=== PATIENT | male | born 1930 | race Caucasian/White ===

== ENCOUNTER 2020-06-06 01:37 | Observation (INO) | payer MEDICARE, OTHER ==
[~2020-06-06] VITALS: Ht 175.3 cm; Wt 69.0 kg
[2020-06-06] MEDS ORDERED: LABETALOL 20 MG/4 ML DISP.SYRIN. IVP ONE ×2 (01:45→05:00)
--- NOTE | 2020-06-06 01:56 | PHYS DOC ---
General Adult EDM: Chief Complaint: HYPERTENSION HPI: HPI: Patient is a 89 year old male presents for evaluation of elevated blood pressure. Blood pressure taken prior to bed was > 200 systolic. Patient called 911 for evaluation. Patient states today his blood pressure and "lung" medications where changed. Patient denies any chest pain or headache or shortness of breath. Patient is a/o x 4-- no neuro deficits. Review of Systems: Review of Systems: Review of systems: Constitutional symptoms- No fever, no chills. Eyes- No Discharge, No Visual Loss Respiratory symptoms- No shortness of breath, No wheezing, No Dyspnea on Exertion Cardiovascular Systems; No chest pain, No Palpitations, No syncope Gastrointestinal symptoms: NO abdominal pain, no nausea, no vomiting or diarrh ea. Genitourinary symptoms: No dysuria. Musculoskeletal symptoms: No back pain No extremity pain. NEUROLOGICAL Symptoms: No headache, no generalized weakness; No focal Weakness Heart Score: C/O Chest Pain: N/A Risk Factors: Risk Factors: DM, Current or recent (<one month) smoker, HTN, HLP, family history of CAD, obesity. Risk Scores: Score 0 - 3: 2.5% MACE over next 6 weeks - Discharge Home Score 4 - 6: 20.3% MACE over next 6 weeks - Admit for Clinical Observation Score 7 - 10: 72.7% MACE over next 6 weeks - Early Invasive Strategies Current Medications: Current Medications Medications (Trade) Dose Ordered Sig/Claudy Start Time Stop Time Status Last Admin Dose Admin Labetalol HCl (Normodyne Iv Push) 20 mg 1X ONCE 06/06/20 01:45 06/06/20 01:46 UNV Physical Exam: PE: General: alert, no acute distress. Skin: warm, dry and intact. Head:: Normocephalic, atraumatic. Neck: Trachea midline. Eyes: EOMI, Normal conjunctiva, No drainage CARDIOVASCULAR: Regular rate and rhythm RESPIRATORY: No respiratory distress Back: Full range of motion. MUSCULOSKELETAL: Full range of motion of bilateral upper and lower extremities. GASTROINTESTINAL: Abdomen soft without rebound or guarding. NEUROLOGICAL: Alert and noted to person, place and time. No neurological deficits observed Psychiatric: Cooperative. Normal judgment EKG: EKG: [] EKG performed at 145 hours heart rate [address] elevation no ST depression no acute MS Radiology/Procedures: Radiology/Procedures: [] Impression: Impression: 1. No radiographic evidence for overt congestive heart failure/volume overload. 2. Multifocal calcific pleural plaque bilaterally. Background findings which could indicate underlying emphysema. Correlate for a smoking history. 3. Relatively extensive calcific atherosclerosis seen to involve the aorta and great vessels extending to the axilla. Electronically signed by: PRIYANKA MUSA MD (06/06/2020 3:30 AM) [facility] Course & Med Decision Making: Course & Med Decision Making Pertinent Labs and Imaging studies reviewed. (See chart for details) [] Was evaluated for chief complaint. Work-up consisted of laboratory analysis and radiologic imaging. Results reviewed and discussed with patient. Patient's initial blood pressure greater than 200/100 systolic. Initial treatment included labetalol 20 mg IV push with improvement to the 160s 170s s ystolic. Patient's initial troponin resulted elevated at 0.198 Patient creatine noted to elevated 1.5. No old creatine and troponin available for comparision. Patient required repeat dose of labatolol 40mg for repeat elevated bp. Due elevated trop, elevated creatine-- and high blood pressure patient was admitted for further evaluation. Merle Disclaimer: Merle Disclaimer: This electronic medical record was generated, in whole or in part, using a voice recognition dictation system. Departure Departure Impression: Primary Impression: Hypertension Additional Impressions: Elevated troponin Renal insufficiency Disposition: ADMITTED INPATIENT Admitting Physician: BOOGIE Condition: STABLE TANYA HYLTON DO Jun 06, 2020 01:56
[2020-06-06 02:14] LABS: CALCIUM 9.1 mg/dL (8.5-10.1); CREATININE 1.6 mg/dL (0.7-1.3)
--- NOTE | 2020-06-06 02:16 | EKG ---
[facility] [address] [place] [address] Test Date: 2020-06-06 Test Time: 01:45:34 Pat Name: GLORIA YORK Department: Room: Gender: M Commissary Steward: : 1930 Requested By: TANYA HYLTON Order Number: [id number] Reading MD: Measurements Intervals [place] Rate: 85 P: -53 AR: 132 QRS: -6 QRSD: 102 T: 111 QT: 366 QTc: 436 Interpretive Statements SINUS RHYTHM LEFTWARD AXIS T ABNORMALITY IN LATERAL LEADS ABNORMAL ECG RI6.02 No previous ECG available for comparison
[2020-06-06 02:22] LABS: TOTAL PROTEIN 6.6 g/dL (6.4-8.2)
[2020-06-06 02:23] LABS: ALBUMIN 3.4 g/dL (3.4-5.0); ALBUMIN/GLOBULIN RATIO 1.1 (1.0-1.7); TOTAL BILIRUBIN 0.5 mg/dL (0.2-1.0)
[2020-06-06] MEDS ORDERED: UNABLE MC (03:23)
--- NOTE | 2020-06-06 03:32 | RAD ---
Study: XR CHEST 1V Indication: Elevated troponin. Comparison: None. Findings: Status post median sternotomy for coronary artery bypass grafting. The cardiomediastinal silhouette i s within normal limits for size. No overt central vascular congestion. Multifocal calcific pleural plaque. No large effusion. No pneumothorax. Increased interstitial markin gs. Particularly the left hemidiaphragm is flattened. Vascular calcifications. Impression: 1. No radiographic evidence for overt congestive heart failure/volume overload. 2. Multifocal calcific pleural plaque bilaterally. Background findings which could indicate underlyin g emphysema. Correlate for a smoking history. 3. Relatively extensive calcific atherosclerosis seen to involve the aorta and great vessels extendin g to the axilla. Electronically signed by: PRIYANKA MUSA MD (06/06/2020 3:30 AM) [facility]
[2020-06-06 03:57] LABS: PROTHROMBIN TIME PATIENT 13.8 SEC (11.7-14.0)
--- NOTE | 2020-06-06 06:15 | NUR ---
Pt arrived to unit to room 109 by ED at 0630. Pt is alert and oriented on room air. Pt woke up at 1AM with chest pain, checked BP and stated it was "really high." Drove himself to the ER, labs were draw- troponin was 0.198. Admitted to ICU but CVC status. On monitor, call light in reach and bed at the lowest position. Will continue to monitor.
[2020-06-06 07:00] VITALS: BP 185/88
[2020-06-06] MEDS ORDERED: METO50TA4 PO (08:31)
[2020-06-06] MEDS ORDERED: AMLO-187 PO (08:31)
[2020-06-06] MEDS ORDERED: BUDE10.2 IH (08:31)
[2020-06-06] MEDS ORDERED: ATOR20TA58 PO (08:31)
[2020-06-06] MEDS ORDERED: ALBU2.5V8 IH (08:31)
[2020-06-06] MEDS ORDERED: LABETALOL 20 MG/4 ML DISP.SYRIN. IVP PRN (09:45)
[2020-06-06] MEDS ORDERED: METOPROLOL SUCC 24HR ER 50 MG TAB.ER.24H. PO SCH (10:00)
[2020-06-06] MEDS ORDERED: amLODIPine BESYLATE 10 MG TABLET PO SCH (10:00)
[2020-06-06 11:00] VITALS: BP 165/92
[2020-06-06] MEDS: ALBUTEROL SULFATE 2.5 MG/3 ML NEBU. NEB SCH ×2 (12:06→15:10)
--- NOTE | 2020-06-06 12:09 | PDOC2 ---
FELECIA TOVAR [employer] COMMER[employer] CONSULTANT 06/06/20 1209: CARDIAC CONSULT DATE OF CONSULT Date of Consult DATE: 06/06/20 TIME: 12:02 REASON FOR CONSULT Reason for Consult: Elevated troponin REFERRING PHYSICIAN Referring Physician: Paulina SOURCE Source: Caregiver (daughter), Chart review, Patient HISTORY OF PRESENT ILLNESS HISTORY OF PRESENT ILLNESS This is a pleasant 89 yo male admitted for complains of high BP. Reports that he recently saw his provider and reported that he was told to stop his BP meds since his BP is very well controlled. He was actually evaluated via his development analyst Dr. Ford in mar to which his metoprolol was cut to 50 mg bid from 100 mg and stopped his norvasc at that time. This was verified by his daughter. He takes norvasc and metoprolol. He went to his lung doctor few days ago and his SBP was in the 140s and actually checked it himself yesterday and was good. He tried to go to bed last night and having a hard time sleeping and his ears were bothering him having seems fullness sounds possibly tinnitus accdg to daughter and was told by placer miner that his hearing aid may need to be adjusted. It was 2 AM and he checked his BP and it was in the 220/110s so he called for help. Denies any chest pain. He does have some SOA but unchanged from his baseline and no changes with his daily activity tolerance with continuous O2 at 2.5 LPM with underlying COPD and was just recently started on trelegy. No palpitations, nausea or vomiting. No unilateral weakness, facial droop or visual disturbances. Again he repeatedly denies any chest pain. He has had CABG and valvular surgeries in the past. Denies any prior covid-19 exposure and had completed his vaccination in 03/2020. PAST MEDICAL HISTORY Cardiovascular: CAD, CHF, HTN, Hyperlipidemia, Aortic stenosis, Valve insufficiency, Other (AAA) Pulmonary: COPD CENTRAL NERVOUS SYSTEM: Other (No pertinent history) GI: Constipation Heme/Onc: No pertinent hx Hepatobiliary: No pertinent hx Psych: No pertinent hx Musculoskeletal: Osteoarthritis Rheumatologic: No pertinent hx Infectious disease: No pertinent hx ENT: No pertinent hx Renal/: Chronic renal insuff (CKD3), Benign prostatic enlarg. Endocrine: No pertinent hx Dermatology: No pertinent hx PAST SURGICAL HISTORY Past Surgical History: CABG (x4 with bioprosthetic AVR 2009), Other ( MC placement 01/25/2017, carotid bilateral endarterectomy 2004, AAA repair 2004; abdominal surgery) FAMILY HISTORY Family History: Hypertension SOCIAL HISTORY Smoke: Quit (heavy smoker before) ALCOHOL: occassional Drugs: None Lives: with Family CURRENT MEDICATIONS CURRENT MEDICATIONS Current Medications Medications (Trade) Dose Ordered Sig/Claudy Route PRN Reason Start Time Stop Time Status Last Admin Dose Admin Labetalol HCl (Normodyne Iv Push) 20 mg 1X ONCE IVP 06/06/20 01:45 06/06/20 02:28 DC 06/06/20 02:38 Labetalol HCl (Normodyne Iv Push) 40 mg 1X ONCE IVP 06/06/20 05:00 06/06/20 05:01 DC 06/06/20 05:18 Amlodipine Besylate (Norvasc) 10 mg DAILY PO 06/06/20 10:00 06/06/20 09:41 Metoprolol Succinate (Toprol Xl) 50 mg BID PO 06/06/20 10:00 06/06/20 09:41 ALLERGIES ALLERGIES: Coded Allergies: No Known Drug Allergies (Unverified , 06/06/20) ROS Review of System 14 point ROS evaluated with pertinent positives noted per HPI PHYSICAL EXAM General: Alert, Oriented X3, Cooperative, No acute distress HEENT: Atraumatic, Mucous membr. moist/pink Lungs: Other (fine basilar crackles) Heart: Regular rate (SR), Normal S1, Normal S2, Other (3-4/6 systolic murmur to apical and 3/6 systolic murmut to SHARONDA border) Abdomen: Soft Extremities: No cyanosis, No edema Skin: No breakdown, No significant lesion Neuro: Normal speech, Sensation intact Psych/Mental Status: Mental status NL, Mood NL MUSCULOSKELETAL: Osteoarthritic changes both hands VITALS/I&O VITALS/I&O: Vital Signs Date Time Temp Pulse Resp B/P (MAP) Pulse Ox O2 Delivery O2 Flow Rate FiO2 06/06/20 11:00 97.8 75 26 165/92 (116) 99 Nasal Cannula 3.0 97.8 LABS Lab: Laboratory Tests Test 06/06/20 02:00 06/06/20 04:00 06/06/20 07:35 Prothrombin Time 13.8 SEC (11.7-14.0) Prothrombin Time INR 1.1 (0.8-1.1) Activated Partial Thromboplast Time 29 SEC (24-38) Sodium Level 145 mmol/L (136-145) Potassium Level 4.0 mmol/L (3.5-5.1) Chloride Level 110 mmol/L (98-107) H Carbon Dioxide Level 25 mmol/L (21-32) Anion Gap 10 (6-14) Blood Urea Nitrogen 36 mg/dL (8-26) H Creatinine 1.6 mg/dL (0.7-1.3) H Estimated GFR (Cockcroft-Gault) 41.0 BUN/Creatinine Ratio 23 (6-20) H Glucose Level 113 mg/dL (70-99) H Calcium Level 9.1 mg/dL (8.5-10.1) Total Bilirubin 0.5 mg/dL (0.2-1.0) Aspartate Amino Transferase (AST) 20 U/L (15-37) Alanine Aminotransferase (ALT) 22 U/L (16-63) Alkaline Phosphatase 45 U/L (46-116) L Troponin I Quantitative 0.198 ng/mL (0.000-0.055) 0.185 ng/mL (0.000-0.055) 0.211 ng/mL (0.000-0.055) Total Protein 6.6 g/dL (6.4-8.2) Albumin 3.4 g/dL (3.4-5.0) Albumin/Globulin Ratio 1.1 (1.0-1.7) Laboratory Tests 06/06/20 02:00 ECHOCARDIOGRAM ECHOCARDIOGRAM 12/2019 [facility] Normal left ventricular systolic function. EF~ 60% Right ventricular size and systolic function are normal S/p Mitraclip with mildly elevated mean gradient of 4 mm Hg. Mild to moderate mitral regurgitation. Well seated 23 mm Mosaic Ultra porcine bioprosthetic aortic valve with mildly elevated mean gradient of 21 mm Hg. No regurgitation No significant pericardial effusion ASSESSMENT/PLAN ASSESSMENT/PLAN 1. HTN urgency: due to missed meds at least in the last week 2. NSTEMI: suspect type 2 due to above.Peaked 0.2 No CP and no acute changes to EKG 3. CAD: CABG x4 with bioprosthetic AVR in 2009 4. MR: MC placement in 2016 5. HX of AAA and bilateral CEA in 2004 monitored closely by [facility] 6. COPD: stable, O2 dependent 7. HLP: lipids on goal 8. CKD3: baseline Cr at 1.4-1.7 Recommendations 1. TTE 2. Restart metoprolol and norvasc. Discussed with daughter and pt. HBPM bid for 2 weeks with diary 3. Continue ASA and statin 4. Secondary prevention measures 5. Trop elevation is likely from uncontrolled HTN. Given that he is not having a ny chest pain at all and no acute EKG changes he could potentially go home this evening if BP is better controlled. He will need a lexiscan next week and I notified Dr. Ford's office and spoke with the traffic officer and a lexiscan will be scheduled for next week. . MARISELA HICKMAN MD 06/07/20 0926: CARDIAC CONSULT ASSESSMENT/PLAN ASSESSMENT/PLAN Late entry for 06/06/20. The patient was seen and interviewed as well as examined at the bedside. The chart was reviewed. The case was discussed. Agree with the plan of care. FELECIA TOVAR APRN Jun 06, 2020 12:09 MARISELA HICKMAN MD Jun 07, 2020 09:26
[2020-06-06 12:19] LABS: BASO # 0.1 x10^3/uL (0.0-0.2); BASO % 1 % (0-3); EOS % 0 % (0-3); HEMATOCRIT 40.9 % (39.0-53.0); HEMOGLOBIN 13.2 g/dL (13.0-17.5); LYMPH # 1.6 x10^3/uL (1.0-4.8); LYMPH % 15 % (24-48); MEAN CORPUSCULAR HEMOGLOBIN 26 pg (25-35); MEAN CORPUSCULAR HGB CONC 32 g/dL (31-37); MEAN CORPUSCULAR VOLUME 80 fL (79-100); MONO % 10 % (0-9); NEUT % 75 % (31-73); PLATELET COUNT 230 x10^3/uL (140-400); RED BLOOD COUNT 5.11 x10^6/uL (4.30-5.70); RED CELL DISTRIBUTION WIDTH 15.2 % (11.5-14.5); WHITE BLOOD COUNT 10.7 x10^3/uL (4.0-11.0)
[2020-06-06 12:26] LABS: CHOLESTEROL/HDL RATIO 2.2
[2020-06-06] MEDS ORDERED: ASPIRIN ENTERIC COATED 81 MG TABLET.DR. PO SCH (13:00)
--- NOTE | 2020-06-06 13:24 | EKG ---
[facility] [address] [place] [address] Test Date: 2020-06-06 Test Time: 13:21:52 Pat Name: GLORIA YORK Department: Room: 109 1 Gender: M Commissary Representative: WARREN : 1930 Requested By: FELECIA TOVAR Order Number: [id number] Reading MD: Measurements Intervals [place] Rate: 80 P: 4 AK: 180 QRS: -11 QRSD: 96 T: 121 QT: 366 QTc: 426 Interpretive Statements SINUS RHYTHM LEFTWARD AXIS ST & T ABNORMALITY, CONSIDER ANTEROLATERAL ISCHEMIA OR LEFT VENTRICULAR STRAIN ABNORMAL ECG RI6.02 Compared to ECG 06/06/2020 01:45:34 Possible ischemia now present T-wave abnormality still present
--- NOTE | 2020-06-06 14:34 | NUR ---
SS following for discharge planning. SS reviewed pt chart and discussed with pt RN. Pt is from home with spouse and is currently requiring oxygen at 2.5 liters nasal canula. Pt has home oxygen. Cardiology consulted. ECHO ordered. Probable discharge to home later today. SS will continue to follow for discharge planning.
[2020-06-06 15:00] VITALS: BP 115/69
[2020-06-06] MEDS ORDERED: ASPI-630 PO (17:01)
[2020-06-06] MEDS ORDERED: AMLO-186 PO (17:01)
--- NOTE | 2020-06-06 17:02 | CARD ---
MR#: [id number] Date of Study: 06/06/2020 Ordering Physician: FELECIA TOVAR, Referring Physician: FELECIA TOVAR Tech: Masha Lauren [facility] APPROVED REPORT EXAM: Two-dimensional and M-mode echocardiogram with Doppler and color Doppler. Other Information Quality : Fair Technically limited study due to body habitus. INDICATION Hypertension/HCVD HX: CABG, Mitral Clip, Porcine Aortic Valve Replacement 2D DIMENSIONS Left Atrium(2D)4.0 (1.6-4.0cm)IVSd1.0 (0.7-1.1cm) Aortic Root(2D)3.0 (2.0-3.7cm)LVDd3.4 (3.9-5.9cm) LVOT Diameter1.9 (1.8-2.4cm)PWd0.8 (0.7-1.1cm) LVDs2.3 (2.5-4.0cm)FS (%) 32.8 % SV29.4 mlLVEF(%)62.4 (>50%) Aortic Valve AoV Peak Golden.252.3cm/sAoV VTI47.9cm AO Peak GR.25.5mmHgLVOT VTI 28.08cm AO Mean GR.14mmHgAVA (VTI)1.70cm2 Mitral Valve MV E Oteuuuct830.7cm/sMV E Peak Gr.8mmHg MV DECEL [id number] A Frjdgbil910.4cm/s MV E Mean Gr.4mmHgE/A Ratio1.1 TDI Lateral E' P. V7.92cm/sMedial E' P. V3.99cm/s E/Lateral E'17.0E/Medial E'33.8 Tricuspid Valve TR P. Debnpibu340gx/sRAP [id number] TR Peak Gr.54emTwAIIE42dzOv LEFT VENTRICLE The left ventricle cavity is small. There is normal left ventricular wall thickness. The left ventric ular systolic function is normal and the ejection fraction is within normal range. The Ejection Fract ion is 55-60%. There is grossly normal LV segmental wall motion. Transmitral Doppler flow pattern is Grade I-abnormal relaxation pattern. RIGHT VENTRICLE The right ventricle cavity is small. The right ventricular systolic function is normal. ATRIA The left atrium is mildly dilated. The right atrium size is normal. The interatrial septum is intact with no evidence for an atrial septal defect or patent foramen ovale as noted on 2-D or Doppler imagi ng. AORTIC VALVE Doppler and Color Flow revealed no significant aortic regurgitation. Calculated aortic valve area is 1.7 cm2 with maximum pressure gradient of 25 mmHg and mean pressure gradient of 14 mmHg. There is a p orcine aortic valve prosthesis. Bioprosthesis leaflets are not well visualized. MITRAL VALVE Calculated mitral valve area is 2.3 cm2 with maximum pressure gradient of 8 mmHg and mean pressure gr adient of 4 mmHg. Doppler and Color-flow revealed mild mitral regurgitation. A mitral clip is noted a nd appears to be functioning normally. TRICUSPID VALVE The tricuspid valve is normal in structure and function. Doppler and Color Flow revealed physiologica l tricuspid regurgitation. The PA pressure was estimated at 27 mmHg. There is no tricuspid valve sten osis. PULMONIC VALVE The pulmonic valve is not well visualized. GREAT VESSELS The aortic root is normal in size. The ascending aorta is not well seen. The IVC is normal in size an d collapses >50% with inspiration. PERICARDIAL EFFUSION There is no evidence of significant pericardial effusion. Critical Notification Critical Value: No <Conclusion> The left ventricular systolic function is normal and the ejection fraction is within normal range. Th e Ejection Fraction is 55-60%. There is grossly normal LV segmental wall motion. Probable bioprosthetic aortic valve. Bioprosthesis leaflets are not well visualized. Calculated aortic valve area is 1.7 cm2 with maximum pressure gradient of 25 mmHg and mean pressure g radient of 14 mmHg. A mitral clip is noted and appears to be functioning normally. Calculated mitral valve area is 2.3 cm2 with maximum pressure gradient of 8 mmHg and mean pressure gr adient of 4 mmHg. Doppler and Color-flow revealed mild mitral regurgitation. Signed by : Jesus Recio, Electronically Approved : 06/06/2020 17:02:08
--- NOTE | 2020-06-06 18:31 | NUR ---
Patient discharged via wheelchair by this RN accompanied by home health worker. All lines removed. Discharge paperwork gone over with and given to both patient and home health care worker with written and verbal instructions. Patient stable at discharge.
--- NOTE | 2020-06-06 18:53 | HP ---
ADMIT DATE: 06/06/2020 CHIEF COMPLAINT: Elevated blood pressure. HISTORY OF PRESENT ILLNESS: The patient is a pleasant 89-year-old female who presented to the ER last night with blood pressures in the 200s systolically. He stated he had associated weakness. This has been occurring off and on for a couple of days. He increased his home meds but that was not working, worse with moving, better with sitting still. He has now been admitted to the ICU where he has been examined in room 109. PAST MEDICAL HISTORY: Hypertension, probable noncompliance, asthma, hyperlipidemia. ALLERGIES: None. FAMILY HISTORY: Hypertension. SOCIAL HISTORY: He does not drink, smoke or take drugs. MEDICATIONS: Reviewed. Please refer to the MRAD. REVIEW OF SYSTEMS: GENERAL: He complains of weakness. SKIN: No bruising, hair changes or rashes. EYES: No blurred, double or loss of vision. NOSE AND THROAT: No history of nosebleeds, hoarseness or sore throat. HEART: No history of palpitations, chest pain or shortness of breath on exertion. LUNGS: Denies cough, hemoptysis, wheezing or shortness of breath. GASTROINTESTINAL: Denies changes in appetite, nausea, vomiting, diarrhea or constipation. GENITOURINARY: No history of frequency, urgency, hesitancy or nocturia. NEUROLOGIC: Denies history of numbness, tingling, tremor or weakness. PSYCHIATRIC: No history of panic, anxiety or depression. ENDOCRINE: No history of heat or cold intolerance, polyuria or polydipsia. EXTREMITIES: Denies muscle weakness, joint pain, pain on walking or stiffness. PHYSICAL EXAMINATION: VITALS: His blood pressure is 227/104. GENERAL: No apparent distress. Alert and oriented. HEENT: Normal cephalic atraumatic, external auditory canals are patent. EYES: Extraocular muscles are intact, pupils are equally round and reactive to light and accommodation. MUSCULOSKELETAL: Well developed, well nourished, good range of motion. ENDOCRINE: No thyromegaly was palpated. LYMPHATICS: No cervical chain or axillary nodes were noted. HEMATOPOIETIC: No bruising. NECK: Supple, no JVD, no thyromegaly was noted. LUNGS: Clear to auscultation in all lung teixeira without rhonchi or wheezing. HEART: RRR, S1, S2 present. Peripheral pulses intact, no obvious murmurs were noted. ABDOMEN: Soft, nontender. Positive bowel sounds no organomegaly, normal bowel sounds. EXTREMITIES: Without any cyanosis, clubbing, or edema. Pedal pulses intact, Homans sign is negative. NEUROLOGIC: Normal speech, normal tone. A and O x 3, moves all extremities, no obvious focal deficits. PSYCHIATRIC: Normal affect, normal mood. Stable. SKIN: No ulcerations or rashes, good skin turgor, no jaundice. VASCULAR: Good capillary refill, neurovascular bundle appears to be intact. DIAGNOSTIC DATA: Troponin is 0.211. Chest x-ray shows some multifocal calcific pleural plaquing, extensive calcific atherosclerosis, but no acute changes. ASSESSMENT AND PLAN: Hypertensive emergency. The patient has been admitted. We are monitoring him in the intensive care unit. We will have him on IV labetalol, home meds, deep venous thrombosis prophylaxis, full code. Consult cardiology. Serial enzymes and serial EKGs. Long-term prognosis time is guarded. CC time is 31 minutes. MARY/TOREY/BRENTON DR: Andrew TID: [id number]
[2020-06-06] MEDS ORDERED: BUDESONIDE 0.5 MG/2 ML NEBU. NEB SCH (20:00)
[2020-06-06] MEDS ORDERED: NON FORMULARY ITEM (Budesonide/Formoterol Fumarate (Symbicort 160-4.5 Mcg Inhaler) 2 PUFF) IH SCH (21:00)
[2020-06-07] MEDS ORDERED: ATORVASTATIN CALCIUM 20 MG TABLET PO SCH (21:00)
== END 2020-06-06 18:36 | disposition home or self-care (01) ==
LOC: ER 01:37 → ED HOLD 03:33 → 1 WEST ICU 05:53
PROVIDERS: ADMIT Internal Medicine; ATTEND Internal Medicine
DX: I16.1 Hypertensive emergency (principal); I21.4 Non-ST elevation (NSTEMI) myocardial infarction; I25.10 Atherosclerotic heart disease of native coronary artery without angina pectoris; I13.0 Hypertensive heart and chronic kidney disease with heart failure and stage 1 through stage 4 chronic kidney disease, or unspecified chronic kidney disease; I50.9 Heart failure, unspecified; N18.30 Chronic kidney disease, stage 3 unspecified; J44.9 Chronic obstructive pulmonary disease, unspecified; E78.5 Hyperlipidemia, unspecified; I35.0 Nonrheumatic aortic (valve) stenosis; R77.8 Other specified abnormalities of plasma proteins; N28.9 Disorder of kidney and ureter, unspecified; Z86.79 Personal history of other diseases of the circulatory system; Z87.891 Personal history of nicotine dependence; Z95.1 Presence of aortocoronary bypass graft; Z91.19 Patient's noncompliance with other medical treatment and regimen; Z99.81 Dependence on supplemental oxygen
CPT/HCPCS: 36415; 71045; 80053; 80061; 84443; 84484; 85025; 85610; 85730; 93005; 93306; 94640; 96374; 96376; 99285; G0378; J3490; J7613; G0379